=== PATIENT | female | born 1940 | race Two or more races ===

== ENCOUNTER 2019-09-05 02:53 | Emergency (ER) | payer OTHER ==
[~2019-09-05] VITALS: Ht 154.9 cm; Wt 56.2 kg
--- NOTE | 2019-09-05 03:09 | NUR ---
Pt brought in by [facility] home pt is aox3, able to speak clear and complete sentences, main language is thai +L forearm shunt, dressed (+dialysis) +G20 on R wrist by EMT enroute monitored accordingly seizure prec applied bed at lowest position siderailsx2 up
[2019-09-05] MEDS ORDERED: ATOR40TA29 PO (03:14)
[2019-09-05] MEDS ORDERED: METO-358 PO (03:14)
[2019-09-05] MEDS ORDERED: AMLO10TA7 PO (03:14)
[2019-09-05] MEDS ORDERED: HYDR50TA3 PO (03:14)
[2019-09-05] MEDS ORDERED: FURO-151 PO (03:14)
[2019-09-05] MEDS ORDERED: CHOL20004 PO (03:14)
[2019-09-05] MEDS ORDERED: LISI-603 PO (03:14)
[2019-09-05] MEDS ORDERED: ALLO300T72 PO (03:14)
[2019-09-05] MEDS ORDERED: IV NORMAL SALINE 1000 ML BAG IV ONE (03:15)
--- NOTE | 2019-09-05 03:30 | NUR ---
PT STARTED SEIZURE +TONIC CLONIC, TIMED FOR UNDER 1MIN +PADDED SIDERAILS TURNED TO R L SIDE SEIZURE PREC IN PLACE ASPIRATION PREC IN PLACE PT POST ICTAL MONITORED ACCORDINGLY
[2019-09-05] MEDS ORDERED: LORAZEPAM 2 MG/1 ML VIAL ONE (03:33)
[2019-09-05 03:41] LABS: BASOPHILS # (AUTO) 0.1 K/uL (0.0-8.0); EOSINOPHILS # (AUTO) 0.3 K/uL (0.0-0.7); HEMOGLOBIN 9.2 g/dL (10.9-14.3); LYMPHOCYTES # (AUTO) 1.4 K/uL (20.0-40.0); LYMPHOCYTES % (AUTO) 14.9 % (20.5-51.5); MEAN CORPUSCULAR HEMOGLOBIN 28.8 uug (24.7-32.8); MEAN CORPUSCULAR HGB CONC 33 g/dL (32.3-35.6); MEAN CORPUSCULAR VOLUME 87.8 fL (75.5-95.3); MONOCYTES # (AUTO) 0.5 K/uL (2.0-10.0); NEUTROPHILS # (AUTO) 6.9 K/uL (1.8-8.9); NEUTROPHILS % (AUTO) 75.1 % (38.5-71.5); PLATELET COUNT (AUTO) 204 K/uL (179-408); RED BLOOD CELL COUNT(AUTO) 3.18 MIL/uL (3.63-4.92); WHITE BLOOD COUNT (AUTO) 9.2 K/uL (3.8-11.8)
[2019-09-05 03:44] LABS: CARBON DIOXIDE 28 mmol/L (21-32); CHLORIDE 100 mmol/L (98-107); CREATININE 4.4 mg/dL (0.6-1.3); GLUCOSE 158 mg/dL (74-106); POTASSIUM 4.3 mmol/L (3.5-5.1); UREA NITROGEN, BLOOD 36 mg/dL (7-18)
[2019-09-05] MEDS ORDERED: LORAZEPAM 2 MG/1 ML VIAL IV ONE (03:45)
[2019-09-05 03:56] LABS: THYROID STIMULATING HORMONE 4.832 mIU/mL (0.358-3.740)
[2019-09-05 04:02] LABS: ACETAMINOPHEN < 2.0 ug/mL (10-30); ALANINE AMINOTRANSFERASE 15 U/L (14-59); ALKALINE PHOSPHATASE 85 U/L (50-136); ASPARTATE AMINOTRANSFERASE 13 U/L (15-37); BILIRUBIN,DIRECT 0.2 mg/dL (0.0-0.2); BILIRUBIN,TOTAL 0.6 mg/dL (0.2-1.0); TOTAL PROTEIN, SERUM 6.4 g/dL (6.4-8.2)
--- NOTE | 2019-09-05 04:10 | NUR ---
PT BACK FR CT VIA [employer] [facility] BY [employer] ASLEEP +O2 VIA NC AT 2LPM (SUPPLEMENTAL) W/ O2SAT AT 97% +R WRIST G20 INFUSING IV NSS, INTACT +ASP PREC +SEIZURE PREC MONITORED ACCORDINGLY KEPT WARM DRY AND COMFORTABLE
[2019-09-05 04:18] LABS: ETHANOL < 3 MG/DL (0-0)
--- NOTE | 2019-09-05 04:59 | NUR ---
ADRYAND ON THE PHONE WITH [facility] FOR TRANSFER (INSURANCE: [facility])
--- NOTE | 2019-09-05 05:13 | NUR ---
FRANKY ON THE PHONE WITH DR SALMERON ([facility])
[2019-09-05] MEDS ORDERED: LEVETIRACETAM IV 1,000 MG in IV DEXTROSE 5% 100 ML IV ONE (05:15)
[2019-09-05] MEDS ORDERED: LEVETIRACETAM 500 MG/5 ML VIAL IV ONE (05:45)
--- NOTE | 2019-09-05 06:21 | NUR ---
HAND OFF AND SBAR GIVEN TO RONEN RN PT OK TO TRANSFER TO [facility] ER UNDER DR HADLEY GARSIA PLEAT TAPER ETA IN 15MINS
--- NOTE | 2019-09-05 06:50 | NUR ---
TRANSPORT COLOR STRAINING BAG WASHER
--- NOTE | 2019-09-11 07:07 | NUR ---
LATE ENTRY FOR 09/05/19 AT 0650 PT PICKED UP [facility] TRANSPORT WITH IV KEPPRA START TIME AT 0545A, STILL TRANSFUSING UPON TRANSFER STOP TIME AT 0650A
== END 2019-09-05 07:00 | disposition short-term general hospital (02) ==
LOC: ER 02:55
DX: G40.909 Epilepsy, unspecified, not intractable, without status epilepticus (principal); I12.9 Hypertensive chronic kidney disease with stage 1 through stage 4 chronic kidney disease, or unspecified chronic kidney disease; E11.22 Type 2 diabetes mellitus with diabetic chronic kidney disease; N18.9 Chronic kidney disease, unspecified; E78.5 Hyperlipidemia, unspecified; Z99.2 Dependence on renal dialysis; Z79.899 Other long term (current) drug therapy
CPT/HCPCS: 36415; 70450; 71045; 80048; 80076; 82140; 83605 ×2; 84443; 84484; 85025; 85730; 87040; 93005; 96365; 96375; 99285; G0480 ×2; G0481; J1953; J2060; J7060; 70030-TC; A4663; J7030